=== PATIENT | female | born 2000 | race Caucasian/White ===

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

== ENCOUNTER 2020-11-18 07:53 | Emergency (ER) | payer OTHER ==
--- NOTE | 2020-11-18 08:58 | EDM.PDOC ---
ED HPI GENERAL MEDICAL PROBLEM - General Chief Complaint: Genitourinary Problem Stated Complaint: HEAVY VAGINAL BLEEDING/CRAMPING/BLOOD CLOT Time Seen by Provider: 11/18/20 08:53 Source of Information: Reports: Patient History Limitations: Reports: No Limitations - History of Present Illness INITIAL COMMENTS - FREE TEXT/NARRATIVE: 20-year-old female presents to the ED due to diffuse lower abdominal cramping pain with associated heavy menstrual bleeding. This started late on the evening of June 18. She was up most of the night due to lower abdominal cramping pain and passage of clots per vagina. She never did recognize any tissue per se. She had a home test was positive about a week ago. Thinks her last known menstrual period was towards the end of October. This would be unlikely. She has never been before. At present the vaginal bleeding has let up a bit but it was quite heavy all day yesterday and throughout the night with quite severe cramps. Patient is tearful due to the pain. Has not been able to eat today. Onset: Sudden Onset Date: 11/16/20 Onset Time: 22:00 Duration: Hour(s):, Waxing/Waning (Severe lower abdominal cramping pain associate with heavy vaginal bleeding for the last day and a half.) Location: Reports: Abdomen (Lower abdominal suprapubic pain. This appears to be due to menstrual cramping and heavy vaginal flow.) Quality: Reports: Ache, Other (Intermittent sharp stabbing crampy lower abdominal pain.) Severity: Moderate (70 8 out of 10.) Improves with: Reports: None Worsens with: Reports: Other Context: Reports: Other (Suspect miscarriage.). Denies: Activity (Worsens at times spontaneously.), Exercise, Lifting, Sick Contact, Trauma Associated Symptoms: Reports: Loss of Appetite (Not sleeping.), Malaise, Nausea/Vomiting (Mild nausea induced by the pain.). Denies: Confusion, Chest Pain, Cough, cough w sputum, Diaphoresis, Fever/Chills, Headaches, Rash, Seizure, Shortness of Breath, Weakness Treatments CURATOR: Reports: Other (see below) (None.) Lower Pelvic Pain Score (Numeric/FACES): 9 - Related Data Allergies Allergy/AdvReac Type Severity Reaction Status Date / Time No Known Allergies Allergy Verified 11/18/20 08:30 Home Meds: Home Meds Ondansetron [Zofran ODT] 4 mg PO Q8H PRN #12 tab.dis 11/21/18 [Rx] hydrOXYzine HCL [Atarax] 50 mg PO BEDTIME PRN #7 tab 11/21/18 [Rx] hydrOXYzine pamoate [Vistaril] 25 mg PO BEDTIME PRN 11/21/18 [History] medroxyPROGESTERone [Provera] 10 mg PO DAILY #10 tab 11/18/20 [Rx] Past Medical History - Past Health History Medical/Surgical History: Denies Medical/Surgical History Psychiatric History: Reports: Anxiety Social & Family History - Tobacco Use Tobacco Use Status *Q: Current Every Day Tobacco User Years of Tobacco use: 5 Packs/Tins Daily: 0.5 - Caffeine Use Caffeine Use: Reports: Coffee - Recreational Drug Use Recreational Drug Use: No - Living Situation & Occupation Living situation: Reports: Single Occupation: Unemployed ED ROS GENERAL - Review of Systems Review Of Systems: See Below Constitutional: Reports: Malaise, Fatigue, Decreased Appetite. Denies: Fever, Chills, Weight Loss HEENT: Reports: No Symptoms Respiratory: Reports: No Symptoms Cardiovascular: Reports: No Symptoms Endocrine: Reports: Fatigue GI/Abdominal: Reports: Abdominal Pain (Diffuse lower abdominal pain due to menstrual cramping.), Decreased Appetite, Nausea. Denies: Constipation, Diarrhea, Hematemesis, Melena, Stool Incontinence, Vomiting, Other : Reports: Frequency. Denies: Urgency Musculoskeletal: Reports: No Symptoms Skin: Reports: No Symptoms Neurological: Reports: No Symptoms Psychiatric: Reports: No Symptoms Hematologic/Lymphatic: Reports: No Symptoms Immunologic: Reports: No Symptoms ED EXAM - Physical Exam Exam: See Below Exam Limited By: No Limitations General Appearance: Alert, WD/WN, Moderate Distress, Other (Vital signs show temperature 36.8 degrees. Heart rate 87 and sinus. Respiratory was 16 with O2 sats of 96% on room air. BP 122/74.) Eye Exam: Bilateral Eye: Normal Inspection (No blepharal pallor. In fact both eyes are injected due to crying. No scleral icterus.), PERRL Throat/Mouth: Normal Inspection, Normal Lips, Normal Oropharynx, Other Head: Atraumatic (Tongue is mildly dry and coated.), Normocephalic Neck: Normal Inspection, Supple, Non-Tender, Full Range of Motion. No: Lymphadenopathy (L), Lymphadenopathy (R) Respiratory/Chest: No Respiratory Distress, Lungs Clear, Normal Breath Sounds, No Accessory Muscle Use Cardiovascular: Normal Peripheral Pulses, Regular Rate, Rhythm, No Edema, No Gallop, No Murmur, No Rub GI/Abdominal Exam: Soft, Non-Tender, No Organomegaly, No Distention, No Abnormal Bruit, No Mass, Pelvis Stable (Hyperactive bowel sounds all 4 quadrants.), Abnormal Bowel Sounds, Other (No signs of peritonitis. The uterus is nonpalpable abdominally.). No: Guarding, Rigid, Rebound, Tender Heart Tones: Not Schley Back Exam: Normal Inspection, Full Range of Motion. No: CVA Tenderness (L), CVA Tenderness (R) Extremities: Normal Inspection, Normal Range of Motion, No Pedal Edema Neurological: Alert, Oriented, CN II-XII Intact, Normal Cognition Psychiatric: Anxious, Tearful Skin Exam: Warm, Dry, Intact, Normal Color, No Rash Course - Vital Signs Last Recorded V/S: Last Vital Signs Temp 36.8 C 11/18/20 08:27 Pulse 87 11/18/20 08:27 Resp 16 11/18/20 08:27 BP 122/74 11/18/20 08:27 Pulse Ox 96 11/18/20 08:27 - Orders/Labs/Meds Orders: Active Orders 24 hr Category Date Time Status PATIENT RETYPE [BBK] Routine Lab 11/18/20 09:14 Ordered Dextrose 5%-0.9% NaCl [Dextrose 5%-Normal Saline] 1,000 Med 11/18/20 09:00 Active ml IV ASDIRECTED Medication Orders Dextrose/Sodium Chloride (Dextrose 5%-Normal Saline) 1,000 mls @ 250 mls/hr IV ASDIRECTED ALHAJI Last Admin: 11/18/20 09:06 Dose: 250 mls/hr Documented by: MILES Labs: Laboratory Tests 11/18/20 11/18/20 11/18/20 Range/Units 08:40 08:40 08:40 WBC 6.23 (3.98-10.04) K/mm3 RBC 4.64 (3.98-5.22) M/mm3 Hgb 13.1 (11.2-15.7) gm/dl Hct 39.7 (34.1-44.9) % MCV 85.6 (79.4-94.8) fl MCH 28.2 (25.6-32.2) pg MCHC 33.0 (32.2-35.5) g/dl RDW Std Deviation 42.5 (36.4-46.3) fL Plt Count 335 (182-369) K/mm3 MPV 10.7 (9.4-12.3) fl Neut % (Auto) 60.7 (34.0-71.1) % Lymph % (Auto) 30.5 (19.3-51.7) % [place] % (Auto) 7.1 (4.7-12.5) % Eos % (Auto) 1.4 (0.7-5.8) Baso % (Auto) 0.3 (0.1-1.2) % Neut # (Auto) 3.78 (1.56-6.13) K/mm3 Lymph # (Auto) 1.90 (1.18-3.74) K/mm3 [place] # (Auto) 0.44 H (0.24-0.36) K/mm3 Eos # (Auto) 0.09 (0.04-0.36) K/mm3 Baso # (Auto) 0.02 (0.01-0.08) K/mm3 Sodium 140 (136-145) mEq/L Potassium 3.8 (3.5-5.1) mEq/L Chloride 105 (98-107) mEq/L Carbon Dioxide 24 (21-32) mEq/L Anion Gap 14.8 (5-15) BUN 13 (7-18) mg/dL Creatinine 0.7 (0.55-1.02) mg/dL Est Cr Clr Drug Dosing 105.16 mL/min Estimated GFR (MDRD) > 60 (>60) mL/min BUN/Creatinine Ratio 18.6 H (14-18) Glucose 97 (70-99) mg/dL Calcium 8.2 L (8.5-10.1) mg/dL Total Bilirubin 0.7 (0.2-1.0) mg/dL AST 13 L (15-37) U/L ALT 18 (14-59) U/L Alkaline Phosphatase 57 (46-116) U/L Total Protein 6.8 (6.4-8.2) g/dl Albumin 3.6 (3.4-5.0) g/dl Globulin 3.2 gm/dL Albumin/Globulin Ratio 1.1 (1-2) HCG, Qual Negative (NEGATIVE) HCG, Quant < 1.0 mIU/mL Blood Type Gel Antibody Screen 11/18/20 Range/Units 08:40 WBC (3.98-10.04) K/mm3 RBC (3.98-5.22) M/mm3 Hgb (11.2-15.7) gm/dl Hct (34.1-44.9) % MCV (79.4-94.8) fl MCH (25.6-32.2) pg MCHC (32.2-35.5) g/dl RDW Std Deviation (36.4-46.3) fL Plt Count (182-369) K/mm3 MPV (9.4-12.3) fl Neut % (Auto) (34.0-71.1) % Lymph % (Auto) (19.3-51.7) % [place] % (Auto) (4.7-12.5) % Eos % (Auto) (0.7-5.8) Baso % (Auto) (0.1-1.2) % Neut # (Auto) (1.56-6.13) K/mm3 Lymph # (Auto) (1.18-3.74) K/mm3 [place] # (Auto) (0.24-0.36) K/mm3 Eos # (Auto) (0.04-0.36) K/mm3 Baso # (Auto) (0.01-0.08) K/mm3 Sodium (136-145) mEq/L Potassium (3.5-5.1) mEq/L Chloride (98-107) mEq/L Carbon Dioxide (21-32) mEq/L Anion Gap (5-15) BUN (7-18) mg/dL Creatinine (0.55-1.02) mg/dL Est Cr Clr Drug Dosing mL/min Estimated GFR (MDRD) (>60) mL/min BUN/Creatinine Ratio (14-18) Glucose (70-99) mg/dL Calcium (8.5-10.1) mg/dL Total Bilirubin (0.2-1.0) mg/dL AST (15-37) U/L ALT (14-59) U/L Alkaline Phosphatase (46-116) U/L Total Protein (6.4-8.2) g/dl Albumin (3.4-5.0) g/dl Globulin gm/dL Albumin/Globulin Ratio (1-2) HCG, Qual (NEGATIVE) HCG, Quant mIU/mL Blood Type B POSITIVE Gel Antibody Screen Negative Meds: Medications Generic Name Dose Route Start Last Admin Trade Name Freq PRN Reason Stop Dose Admin Dextrose/Sodium Chloride 1,000 mls @ 250 mls/hr 11/18/20 09:00 11/18/20 09:06 Dextrose 5%-Normal Saline IV 250 mls/hr ASDIRECTED ALHAJI Administration Discontinued Medications Generic Name Dose Route Start Last Admin Trade Name Freq PRN Reason Stop Dose Admin Hydromorphone HCl 0.5 mg 11/18/20 09:12 11/18/20 09:19 Hydromorphone 0.5 Mg/0.5 Ml Syringe IVPUSH 11/18/20 09:13 0.5 mg ONETIME ONE Administration Metoclopramide HCl 7.5 mg 11/18/20 09:12 11/18/20 09:19 Metoclopramide 10 Mg/2 Ml Sdv IVPUSH 11/18/20 09:13 7.5 mg ONETIME ONE Administration - Radiology Interpretation Free Text/Narrative:: 20-year-old female presents to the ED due to persistent heavy vaginal bleeding associate with severe lower abdominal intermittent cramping abdominal pain. This started around 2200 hrs. on the evening of November 16. Patient had appreciated home test that was positive a week ago. She is not sure when her last known menstrual period was. She has never experienced severe vaginal bleeding like this before. Currently she states the pain is a constant ache in the pelvis without severe cramping at this time. She does not recognize that she passed any tissue or whitish tissue per vagina. Heavy large dark maroon clots. Plan routine labs to be done. This will include a type and screen qualitative and quantitative beta-hCG and a CBC and CMP. IV will be D5 normal saline at 150 mils an hour. Given Dilaudid 0.5 mg IV for pain relief and Reglan 7.5 mg IV for nausea. She will have a transvaginal ultrasound performed to rule out an ectopic but clinically she has no peritoneal signs. - Re-Assessments/Exams Free Text/Narrative Re-Assessment/Exam: 11/18/20 09:21 Hematology reveals a normal white count at 6.23. Differential shows 60.7 neutrophils in the auto differential. Hemoglobin is 13.1 with hematocrit of 39.7. Platelet count 335,000 11/18/20 10:52 transvaginal ultrasound has been completed. Uterus is retroverted. No intrauterine gestational sac is seen. Endometrial thickness is 0.5 cm. Ovaries show follicles. No larger cyst or solid ovarian or adnexal abnormalities appreciated. Right adnexa shows a small amount of free fluid. Impression is no findings of intrauterine or extrauterine . Small amount of free fluid within the right adnexa which is likely physiologic. 11/18/20 10:53 Sodium is 140 with potassium 3.8. Chloride 105 with a bicarb of 24. Anion gap is 14.8. BUN is 13 with a creatinine of 0.7 and a GFR greater than 60. Glucose is 97. Calcium is 8.2. Liver function is normal. Total protein 6.8 with an albumin fraction of 3.6. hCG qualitative is negative and the quant was less than 1.0. It appears that she never has been . Blood type is B pos. Departure - Departure Time of Disposition: 11:03 Disposition: Home, Self-Care 01 Condition: Fair Clinical Impression: Dysfunctional uterine hemorrhage - Discharge Information *PRESCRIPTION DRUG MONITORING PROGRAM REVIEWED*: Not Applicable *COPY OF PRESCRIPTION DRUG MONITORING REPORT IN PATIENT LULI: Not Applicable Prescriptions: medroxyPROGESTERone [Provera] 10 mg PO DAILY #10 tab Forms: ED Department Discharge, ED Return to Work/School Form Additional Instructions: Evaluation in the emergency room this morning in regards to diffuse lower abdominal cramping pain associate with a very heavy menstrual flow starting late in the evening of Wednesday, November 15. This persisted throughout all day yesterday and was somewhat better this morning with decreased pain and decreased vaginal flow. Concern was for a positive test at home a week ago suggesting that you might be . Her test done through the emergency room and lab reveals no evidence of . Therefore at home test was a false positive. Ultrasound reveals that the lining of the uterus contains no signs of a and is now normal at 0.5 cm. No ovarian cyst masses or abnormalities appreciated. Therefore current heavy bleeding or menorrhagia was secondary to excessive estrogen stimulating the light lining uterus to go over the last month or 2. With no ovulation second hormone called Provera progesterone was not generated from the ovary and no. Occurred. Therefore the lining of the uterus continue to grow for the last month or 2 and this. Became excessively heavy with associated cramps due to passing clots. At this time I appears that for the most part this. Is towards the end. If it anytime it becomes heavy again within the next 2 to 3 days then I wish you to go and fill prescription for Provera 10 mg tablet to take 1 every day at bedtime for 10 consecutive days. Vaginal bleeding should come under control after 2 tablets and will start again 2 to 3 days after finishing the last tablet but return to a more normal flow. If any further problems occur follow-up with [employer] provider. Sepsis Event Note (ED) - Evaluation Sepsis Screening Result: No Definite Risk - Focused Exam Vital Signs: Vital Signs Temp Pulse Resp BP Pulse Ox 11/18/20 08:27 36.8 C 87 16 122/74 96 - My Orders Last 24 Hours: My Active Orders 11/18/20 09:00 Dextrose 5%-0.9% NaCl [Dextrose 5%-Normal Saline] 1,000 ml IV ASDIRECTED 11/18/20 09:14 PATIENT RETYPE [BBK] Routine - Assessment/Plan Last 24 Hours: My Active Orders 11/18/20 09:00 Dextrose 5%-0.9% NaCl [Dextrose 5%-Normal Saline] 1,000 ml IV ASDIRECTED 11/18/20 09:14 PATIENT RETYPE [BBK] Routine
[2020-11-18] MEDS ORDERED: Dextrose 5%-0.9% NaCl 1,000 ML IV SCH (09:00)
[2020-11-18] MEDS ORDERED: HYDROmorphone 0.5 MG/0.5 ML Syringe IVPUSH ONE (09:12)
[2020-11-18] MEDS ORDERED: Metoclopramide 10 MG/2 ML SDV IVPUSH ONE (09:12)
--- NOTE | 2020-11-18 10:35 | US ---
First trimester obstetrical ultrasound: Multiple real-time images were obtained transvaginally. Comparison: No prior obstetrical or pelvic imaging is available. Uterus is retroverted. No intrauterine gestational sac is seen. Endometrial thickness is 0.5 cm. Ovaries show follicles. No larger cyst or solid ovarian or adnexal abnormality is appreciated. Right adnexa shows a small amount of free fluid. Impression: 1. No findings of intrauterine or extrauterine . 2. Small amount of free fluid within the right adnexa which is most likely physiologic. 3. No additional abnormality is appreciated. Diagnostic code #2
== END 2020-11-18 11:15 | disposition home or self-care (01) ==
LOC: JD.ED 07:53
DX: N93.8 Other specified abnormal uterine and vaginal bleeding (principal); Z72.0 Tobacco use
CPT/HCPCS: 36415; 76817; 80053; 84702; 84703; 85025; 86850; 86900; 86901; 96374; 96375; 99284; J1170; J2765; J7042; 99283